=== PATIENT | female | born 1985 | race Caucasian/White ===

== ENCOUNTER 2018-11-16 21:48 | Emergency (ER) | payer OTHER ==
[~2018-11-16] VITALS: Ht 172.7 cm; Wt 70.8 kg
[~2018-11-16 21:48] MED LIST: ACETAMINOPHEN-1 EAC1 PO; ANTIBIOTIC PO; APAP500; APAP500 PO; COLACE100 MG PO; DERMOPLAST SPRA56 ML; FAMOTIDINE 20 M20 MG PO; HYDROCODON-ACE1 EAC7 PO; IBUPROFEN 600600 M1 PO; IRON325 PO; LANOLIN56 GM; MACROBID 100 M100 M1 PO; MONISTAT 745 GM VAG; NOHOMEMEDICATIONS; NORCO 5-325 TA1 EACH PO; ONDANSETRON HCL4 M2 PO; PRENATAL; PRENATAL DHA200 MG PO; PROTONIX40 M2 PO; RANITIDINE PO; REGLAN 5 MG TAB5 MG PO; TRINATE TABLET1 TAB PO; ZANTAC 150MG T150 MG PO; ZOFRAN ODT4 M1 PO; [UNRECOGNIZED DRUG - REMARK]
[2018-11-16 22:51] LABS: URINE BILIRUBIN NEGATIVE (Negative); URINE BLOOD NEGATIVE (Negative); URINE CLARITY CLEAR; URINE COLOR YELLOW; URINE GLUCOSE-RANDOM* NEGATIVE (Negative); URINE KETONES NEGATIVE (Negative); URINE LEUKOCYTES-REFLEX NEGATIVE (Negative); URINE NITRITE-REFLEX NEGATIVE (Negative); URINE PROTEIN (DIPSTICK) NEGATIVE (Negative); URINE SPECIFIC GRAVITY >= 1.030 (1.005-1.035); URINE UROBILINOGEN 0.2 E.U./dl (0.2-1.0)
[2018-11-16 23:07] LABS: AMP/METHAMP Negative (Negative); BARBITURATES Negative (Negative); BENZODIAZEPINES Negative (Negative); COCAINE Negative (Negative); METHADONE Negative (Negative); OPIATES Negative (Negative); PCP Negative (Negative)
[2018-11-17] MEDS ORDERED: BUTALB-APAP-CA1 EACH PO (00:58)
[2018-11-17 01:25] VITALS: BP 77/50
== END 2018-11-17 01:30 | disposition home or self-care (01) ==
LOC: ER 21:48
PROVIDERS: Emergency Medicine
DX: R51 Headache (principal); F17.210 Nicotine dependence, cigarettes, uncomplicated; Z85.41 Personal history of malignant neoplasm of cervix uteri; Z86.73 Personal history of transient ischemic attack (TIA), and cerebral infarction without residual deficits

== ENCOUNTER 2019-06-07 07:54 | Emergency (ER) | payer OTHER ==
[~2019-06-07] VITALS: Ht 172.7 cm; Wt 77.1 kg
[~2019-06-07 07:54] MED LIST changes: +BUTALB-APAP-CA1 EACH PO
[2019-06-07 08:19] LABS: ABSOLUTE NEUTROPHILS 3.3 thou/uL (1.4-8.2); BASOPHILS 0.7 % (0.0-2.0); EOSINOPHILS 1.9 % (0.0-3.0); HEMATOCRIT 37.6 % (37.0-47.0); HEMOGLOBIN 12.9 gm/dL (12.0-15.0); LYMPHOCYTES 28.7 % (24.0-44.0); MCH 32.8 pg (26.0-34.0); MCHC 34.3 g/dL (28.0-37.0); MCV 95.5 fL (80.0-100.0); MONOCYTES 8.7 % (1.0-8.0); PLATELET COUNT 186 thou/uL (150-400); RBC 3.94 mil/uL (4.20-5.00); RDW 13.1 % (10.5-14.5); WBC 5.5 thou/uL (4.0-11.0)
[2019-06-07 08:27] LABS: ANION GAP 9 mmol/L (7-16); BUN 13 mg/dL (7-18); CALCIUM 8.7 mg/dL (8.5-10.1); CHLORIDE 106 mmol/L (98-107); CO2 25 mmol/L (21-32); CREATININE 0.7 mg/dL (0.6-1.0); GLUCOSE 118 mg/dL (74-106); POTASSIUM 3.7 mmol/L (3.5-5.1); SODIUM 140 mmol/L (136-145)
[2019-06-07 08:38] LABS: ALBUMIN 3.7 g/dL (3.4-5.0); MAGNESIUM 1.9 mg/dL (1.8-2.4); SGOT 11 U/L (15-37); SGPT 13 U/L (30-65); TOTAL BILIRUBIN 0.8 mg/dL (<0.1-1.0); TROPONIN-I <0.06 ng/mL (<0.06)
[2019-06-07] MEDS ORDERED: ATIVAN0.5 MG PO (09:25)
[2019-06-07] MEDS ORDERED: NAPROSYN500 MG PO (09:25)
[2019-06-07 10:31] VITALS: BP 111/68
--- NOTE | 2019-06-08 10:49 | EKG ---
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1985 Requested By: Jimi Keating Order Number: [id number] MD: Lv Amado Measurements Intervals [place] Rate: 82 P: 74 MA: 165 QRS: 86 QRSD: 107 T: 16 QT: 401 QTc: 469 Interpretive Statements Sinus rhythm Normal tracing Compared to ECG 12/30/2015 18:12:50 No significant changes Electronically Signed On 06-08-2019 10:49:36 CDT by Lv Amado [email or web address] ��������������������������������������������� <ELECTRONICALLY SIGNED> ���������������������������������������� By: Lv Amado MD, [facility] ��������������������������������������������� 06/08/19 [id number] Lv Amado MD, FACC /EPI
== END 2019-06-07 12:43 | disposition home or self-care (01) ==
LOC: ER 07:54
PROVIDERS: Emergency Medicine
DX: F41.9 Anxiety disorder, unspecified (principal); R07.89 Other chest pain; F17.210 Nicotine dependence, cigarettes, uncomplicated; F32.9 Major depressive disorder, single episode, unspecified; Z85.41 Personal history of malignant neoplasm of cervix uteri

== ENCOUNTER 2021-07-04 01:26 | Emergency (ER) | payer OTHER ==
[~2021-07-04] VITALS: Ht 170.2 cm; Wt 79.4 kg
[~2021-07-04 01:26] MED LIST changes: +ATIVAN0.5 MG PO; +NAPROSYN500 MG PO
[2021-07-04] MEDS ORDERED: NOHOMEMEDICATIONS (01:35)
[2021-07-04 02:43] LABS: ABSOLUTE NEUTROPHILS 5.2 thou/uL (1.4-8.2); BASOPHILS 0.8 % (0.0-2.0); EOSINOPHILS 2.2 % (0.0-3.0); HEMATOCRIT 34.2 % (37.0-47.0); HEMOGLOBIN 11.6 gm/dL (12.0-15.0); LYMPHOCYTES 28.2 % (24.0-44.0); MCHC 33.8 g/dL (28.0-37.0); MCV 94.7 fL (80.0-100.0); MONOCYTES 7.6 % (1.0-8.0); PLATELET COUNT 197 thou/uL (150-400); POLYS 61.2 % (36.0-66.0); RBC 3.61 mil/uL (4.20-5.00); RDW 12.8 % (10.5-14.5); WBC 8.5 thou/uL (4.0-11.0)
[2021-07-04 02:46] LABS: URINE BILIRUBIN NEGATIVE (Negative); URINE BLOOD NEGATIVE (Negative); URINE CLARITY CLEAR; URINE COLOR YELLOW; URINE GLUCOSE-RANDOM* NEGATIVE (Negative); URINE KETONES NEGATIVE (Negative); URINE NITRITE-REFLEX NEGATIVE (Negative); URINE PROTEIN (DIPSTICK) NEGATIVE (Negative)
[2021-07-04 02:48] LABS: CALCIUM 8.4 mg/dL (8.5-10.1); POTASSIUM 3.1 mmol/L (3.5-5.1)
[2021-07-04 02:54] LABS: ALBUMIN 3.2 g/dL (3.4-5.0); TOTAL BILIRUBIN 0.2 mg/dL (0.2-1.0); TOTAL PROTEIN 6.5 g/dL (6.4-8.2)
[2021-07-04 02:56] LABS: URINE LEUKOCYTES-REFLEX 1+ (Negative)
[2021-07-04 03:00] LABS: SQUAMOUS 0-3 Few /LPF (0-3)
[2021-07-04 03:01] LABS: BACTERIA-REFLEX 1-9 Few /HPF (None Seen); CASTS None Seen /LPF (None Seen); CRYSTALS None Seen /LPF (None Seen); MUCUS 0-3 Light strn/LPF (None Seen); URINE RBC 1-2 Rare /HPF (NONE SEEN)
[2021-07-04 03:02] LABS: URINE WBC-REFLEX 0-5 Rare /HPF (0-5)
[2021-07-04] MEDS ORDERED: CEFPODOXIME PR200 M1 PO (05:27)
[2021-07-04 05:53] VITALS: BP 98/50
== END 2021-07-04 05:53 | disposition home or self-care (01) ==
LOC: ER 01:26
PROVIDERS: Emergency Medicine
DX: N12 Tubulo-interstitial nephritis, not specified as acute or chronic (principal); F17.210 Nicotine dependence, cigarettes, uncomplicated; Z90.89 Acquired absence of other organs